=== PATIENT | female | born 1950 | race Caucasian/White ===

== ENCOUNTER 2024-01-24 11:38 | Emergency (ER) | payer OTHER ==
[2024-01-24] MEDS: cefTRIAXone 1 GM Vial IM ONE (12:38)
[2024-01-24] MEDS: Lidocaine 1% PF 2 ML SDV INJECT ONE (12:38)
[2024-01-24] MEDS: Bacitracin Oint 1 GM U/D Packet TOP ONE (12:52)
== END 2024-01-24 13:08 | disposition home or self-care (01) ==
LOC: DL.ED 11:38
DX: S61.246A Puncture wound with foreign body of right little finger without damage to nail, initial encounter (principal); W45.8XXA Other foreign body or object entering through skin, initial encounter
CPT/HCPCS: 73130; 96372; 99283; A9270; J0696; J3490

== ENCOUNTER 2025-02-04 20:49 | Emergency (ER) | payer OTHER ==
[2025-02-04] MEDS: Lidocaine 2% with EPINEPHrine 1:200,000 20 ML SDV INJECT ONE (21:30)
== END 2025-02-04 22:03 | disposition home or self-care (01) ==
LOC: DL.ED 20:49
DX: S81.811A Laceration without foreign body, right lower leg, initial encounter (principal); I10 Essential (primary) hypertension; Z91.041 Radiographic dye allergy status; W26.8XXA Contact with other sharp object(s), not elsewhere classified, initial encounter
CPT/HCPCS: 12002; 99282; J3490